=== PATIENT | female | born 1965 | race Hispanic/Latino ===

== ENCOUNTER 2017-12-14 07:19 | Emergency (ER) | payer SELFPAY ==
[2017-12-14 07:55] LABS: #Basophils 0.1 thou/uL (0.0-0.2); #Eosinphils 0.2 thou/uL (0.0-0.7); #Lymphocytes 2.2 thou/uL (1.20-3.40); #Monocytes 0.5 thou/uL (0.11-0.59); #Neutrophils 2.9 thou/uL (1.40-6.50); %Basophils 1.8 % (0.0-1.0); %Lymphocytes 37.6 % (21.0-51.0); %Monocytes 8.1 % (0.0-10.0); %Neutrophils 49.4 % (42.0-75.0); Hemoglobin 14.2 g/dL (12.0-16.0); Mean Corpuscular HGB CONC 32.7 g/dL (32.0-36.0); Mean Corpuscular Hemoglobin 30.1 pg (27.0-31.0); Mean Platelet Volume 6.9 fL (7.4-10.4); Platelet Count 316 thou/uL (130-400); RBC Distribution Width 12.4 % (11.5-14.5); Red Blood Cell (RBC) Count 4.72 mill/uL (4.20-5.40); White Blood Cell (WBC) Count 5.9 thou/uL (4.8-10.8)
[2017-12-14 08:13] LABS: ALT (SGPT) 15 U/L (8-55); AST (SGOT) 17 U/L (5-34); Albumin 4.2 g/dL (3.5-5.0); Alkaline Phosphatase 100 U/L (40-150); Anion Gap 15 mmol/L (10-20); BUN (Urea Nitrogen) 6 mg/dL (9.8-20.1); Bilirubin, Total 0.4 mg/dL (0.2-1.2); Calc. Creatinine Clearance 0 mL/min (70-130); Calcium 9.3 mg/dL (7.8-10.44); Carbon Dioxide 19 mmol/L (22-29); Chloride 106 mmol/L (98-107); Estimated GFR-MDRD 82; Globulin 3.1 g/dL (2.4-3.5); Glucose 92 mg/dL (70-105); Lipase 26 U/L (8-78); Potassium 4.4 mmol/L (3.5-5.1); Protein, Total 7.3 g/dL (6.0-8.3); Sodium 136 mmol/L (136-145)
[2017-12-14] MEDS ORDERED: Ketorolac Tromethamine 30 MG/ML VIAL ONE (08:46)
--- NOTE | 2017-12-14 08:58 | ULT ---
ULTRASOUND GALLBLADDER RIGHT UPPER QUADRANT: HISTORY: Abdominal pain. COMPARISON: None. FINDINGS: Visualized portion of the pancreas unremarkable. Hepatic echotexture is slightly coarsened. The ezio er measures 18.8 cm in length. The main portal vein is patent. There is cholelithiasis. No cholecystitis. Gallbladder wall thickn ess is normal at 2 mm. Common bile duct is normal in size. The right kidney measures 9.5 x 3.8 x 4.2 cm without mass, hydronephrosis, or abnormal calcifications . IMPRESSION: 1. Cholelithiasis without cholecystitis. 2. Mild hepatomegaly and increased hepatic echotexture suggests steatosis. POS: [facility]
[2017-12-14 09:08] LABS: Bilirubin Negative (Negative); Blood, Urine Negative (Negative); Clarity CLEAR (Clear); Glucose, Urine (Dipstick) Negative (Negative); Leukocyte Small (Negative); Nitrite Negative (Negative); Protein, Urine (Dipstick) Negative (Neg-Trace); Specific Gravity, Urine 1.011 (1.002-1.036); pH, Urine 7.5 (5.0-9.0)
[2017-12-14 09:10] LABS: Bacteria/HPF Rare-Few HPF (None Seen); Hyaline Casts/LPF 0-3 HYALINE CAST LPF (0-3 Hyaline); Squamous Epithelial 0-3 HPF (0-3)
== END 2017-12-14 09:45 | disposition home or self-care (01) ==
LOC: ERS 07:19
DX: K80.20 Calculus of gallbladder without cholecystitis without obstruction (principal); F41.9 Anxiety disorder, unspecified; F32.9 Major depressive disorder, single episode, unspecified; F17.210 Nicotine dependence, cigarettes, uncomplicated; Z79.899 Other long term (current) drug therapy
CPT/HCPCS: 36415; 76705; 80053; 81003; 81015; 83690; 85025; 96374; J1885

== ENCOUNTER 2017-12-17 20:20 | Observation (INO) | payer SELFPAY ==
[2017-12-17 20:52] LABS: Hemoglobin 12.9 g/dL (12.0-16.0); Mean Corpuscular HGB CONC 33.5 g/dL (32.0-36.0); Mean Corpuscular Hemoglobin 30.9 pg (27.0-31.0); Mean Corpuscular Volume 92.1 fl (81.0-99.0); Mean Platelet Volume 6.9 fL (7.4-10.4); Platelet Count 278 thou/uL (130-400); RBC Distribution Width 12.3 % (11.5-14.5); Red Blood Cell (RBC) Count 4.19 mill/uL (4.20-5.40); White Blood Cell (WBC) Count 5.9 thou/uL (4.8-10.8)
[2017-12-17] MEDS ORDERED: Ketorolac Tromethamine 30 MG/ML VIAL ONE (20:52)
[2017-12-17 21:08] LABS: Eosinophils 2 % (0-10); Lymphocytes 50 % (21-51); MDiff Complete? YES; Monocytes 5 % (0-10); Neutrophil 43 % (42-75); PLT Morphology Comment Appears Adequate
[2017-12-17 21:12] LABS: ALT (SGPT) 20 U/L (8-55); AST (SGOT) 17 U/L (5-34); Albumin 3.8 g/dL (3.5-5.0); Alkaline Phosphatase 91 U/L (40-150); Anion Gap 13 mmol/L (10-20); BUN (Urea Nitrogen) 12 mg/dL (9.8-20.1); Bilirubin, Total 0.3 mg/dL (0.2-1.2); Calc. Creatinine Clearance 0 mL/min (70-130); Calcium 8.6 mg/dL (7.8-10.44); Carbon Dioxide 20 mmol/L (22-29); Chloride 108 mmol/L (98-107); Estimated GFR-MDRD 83; Globulin 2.8 g/dL (2.4-3.5); Glucose 91 mg/dL (70-105); Lipase 35 U/L (8-78); Potassium 3.9 mmol/L (3.5-5.1); Protein, Total 6.6 g/dL (6.0-8.3); Sodium 137 mmol/L (136-145)
--- NOTE | 2017-12-17 21:38 | ULT ---
RIGHT UPPER QUADRANT ULTRASOUND: History: Worsening right upper quadrant pain. FINDINGS: The gallbladder shows a thickened wall on the current study. A large gallstone is again noted. Techno logist describes a positive Oro's sign today. The visualized liver, pancreas, and right kidney appear unremarkable. IMPRESSION: Cholelithiasis again noted. The gallbladder is slightly contracted which may contribute to the thicke bautista gallbladder wall. A positive Oro's sign is described and findings are concerning for a cholecy stitis. POS: [facility]
[2017-12-18] MEDS ORDERED: Metoclopramide HCl 10 MG/2 ML VIAL IVP PRN (00:17)
[2017-12-18] MEDS ORDERED: Ondansetron HCl/PF 4 MG/2 ML Vial IVP PRN (00:17)
[2017-12-18] MEDS ORDERED: Morphine 4 MG/ML Carpuject SLOW IVP PRN (00:20)
[2017-12-18] MEDS: D5 1/2 NS w/20 mEq KCL 1,000 ML IV SCH ×2 (00:44→10:11)
[2017-12-18 05:26] VITALS: BMI 30.6
[2017-12-18] MEDS ORDERED: Scopolamine 1.5 mg/72 hour Patch TOP SCH (09:45)
[2017-12-18] MEDS ORDERED: Sodium Chloride 0.9% 1,000 ML IV SCH (09:45)
[2017-12-18] MEDS: Ketorolac Tromethamine 30 MG/ML VIAL IVP SCH ×2 (10:04→17:25)
[2017-12-18] MEDS: Acetaminophen 1,000 MG in Premix Bag 1 BAG IVPB SCH ×2 (10:06→17:31)
--- NOTE | 2017-12-18 12:35 | HP ---
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 ALLERGIES: CODEINE, PENICILLIN, and ZOFRAN. TOBACCO: One pack per day. ALCOHOL: None. MEDICATIONS: Buspirone daily, Wellbutrin daily, Seroquel two tabs at bedtime, gabapentin 1 tab t.i.d ., doxepin 1 tab at bedtime, Effexor 1 tab a.m., Effexor XR 1 tab a.m. PAST SURGICAL HISTORY: Total abdominal hysterectomy; unilateral salpingo-oophorectomy (left); append ectomy; bilateral breast biopsies, benign; colonoscopy two years ago; polyps removed. She is to have a repeat colonoscopy in the near future due to family history of rectal cancer (paternal grandfather ). REVIEW OF SYSTEMS: Ten point noncontributory. PHYSICAL EXAMINATION: VITAL SIGNS: 5 foot 1, 162 pounds, 30 BMI, 97.9, 80, 121/78. HEENT: Unremarkable. Sclerae nonicteric. SKIN: Nonjaundiced. LUNGS: Clear to auscultation. CARDIAC: Regular rate and rhythm without murmur or gallop. ABDOMEN: Soft, tenderness in right upper quadrant with guarding and rebound, positive Oro's. EXTREMITIES: Unremarkable. LYMPHATICS: Axilla, groins, neck without lymphadenopathy. LABORATORY DATA: Basic metabolic profile essentially normal. Liver function tests normal. White co unt 5, hemoglobin 12. ASSESSMENT AND PLAN: 1. Acute cholecystitis. Recommend laparoscopic video cholecystectomy. Risk of infection, bleeding, visceral and biliary injury and open procedure discussed. Questions answered. We will plan today. 2. Depression. 3. Tobacco abuse. 4. Surveillance colonoscopies. 5. Multiple allergies: CODEINE, PENICILLIN, ZOFRAN.
[2017-12-18] MEDS ORDERED: Lidocaine 2% w/Epinephrine 1:200K 20 ML VIAL ONE (13:34)
[2017-12-18] MEDS ORDERED: Bupivacaine 0.25% HCL 30 ML VIAL ONE (13:34)
[2017-12-18] MEDS ORDERED: Fentanyl 100 MCG/2 ML VIAL ONE ×2 (13:40→15:28)
[2017-12-18] MEDS ORDERED: Midazolam HCl 2 mg/2 ml Vial ONE (13:40)
[2017-12-18] MEDS ORDERED: Promethazine HCl 25 MG/ML VIAL SLOW IVP PRN (14:27)
[2017-12-18] MEDS ORDERED: Meperidine HCl/PF 25 MG/ML VIAL SLOW IVP PRN (14:27)
[2017-12-18] MEDS ORDERED: Bupivacaine PF 0.5% 30 ML VIAL ONE (14:50)
[2017-12-18] MEDS ORDERED: Lidocaine 1% w/Epinephrine 1:200K 30 ML VIAL ONE (14:50)
[2017-12-18] MEDS ORDERED: Promethazine HCl 25 MG/ML VIAL ONE (15:28)
[2017-12-18] MEDS ORDERED: Labetalol HCl 100 MG/20 ML VIAL SLOW IVP PRN (15:29)
[2017-12-18] MEDS ORDERED: Acetaminophen 500 MG TAB PO PRN (15:34)
[2017-12-18] MEDS ORDERED: traMADol HCl 50 MG TAB PO PRN ×2 (15:34)
[2017-12-18] MEDS ORDERED: Lidocaine 1% PF 5 ML VIAL ONE (15:46)
[2017-12-18] MEDS ORDERED: Glycopyrrolate 0.2 MG/ML 5 ML SYRINGE ONE (15:46)
[2017-12-18] MEDS ORDERED: PROPOFOL 200 MG/20 ML VIAL ONE (15:46)
[2017-12-18] MEDS ORDERED: Morphine 2 MG/ML SYRINGE ONE (15:56)
--- NOTE | 2017-12-18 16:05 | OP ---
DATE OF PROCEDURE: 12/18/2017 PREOPERATIVE DIAGNOSES: Chronic and acute cholecystitis, cholelithiasis. POSTOPERATIVE DIAGNOSES: Chronic and acute cholecystitis, cholelithiasis. PROCEDURE: Laparoscopic video cholecystectomy. SURGEON: Dr. John Carrizales ANESTHESIA: General. Local 0.25% Marcaine, 30 mL, mixed with 1% Xylocaine with epinephrine, 30 mL PROCEDURE: The patient was taken to the operating room where under general anesthesia, abdomen was p repared with ChloraPrep, draped in routine fashion. Local anesthetic infiltrated into skin and subcu taneous tissue about each port site. Infraumbilical incision made and pneumoperitoneum to 15 mmHg ob tained with the Veress needle, replacing it with a 5 port. Video laparoscope inserted. Right subxip hoid incision made and 11 port placed. Right subcostal incision made midclavicular and anterior axil gurwinder lines and 5 mm ports placed. Liver appeared to be normal. Fundus of gallbladder grasped and re flected cephalad. Infundibulum grasped and reflected laterally. Cystic artery and duct dissected fr ee. Critical view obtained with two-thirds pericholecystic dissection from the cystic plate. Cystic artery and duct doubly clipped proximally, divided, and gallbladder dissected free from the liver be d obtaining good hemostasis prior to division of final peritoneal attachments. Gallbladder and iliana nts removed and submitted to Pathology. Good hemostasis ensured. Irrigant and pneumoperitoneum evac uated. All instruments removed and all skin incisions approximated with interrupted subdermal 4-0 Mo nocryl and DermaGlue applied.
[2017-12-18 16:42] VITALS: TEMP 98.1
[2017-12-18 18:31] VITALS: BP 127/78
--- NOTE | 2017-12-19 02:12 | DIS ---
DATE OF ADMISSION: 12/17/2017 DATE OF DISCHARGE: 12/18/2017 DISCHARGE DIAGNOSES: Cholecystitis, cholelithiasis with intractable abdominal pain. DISCHARGE MEDICATIONS: Buspirone daily, doxepin 100 mg daily, gabapentin 300 mg daily, Seroquel 400 mg 2 at bedtime, Effexor XR 150 mg at bedtime, Effexor 75 mg at bedtime, Ultram #30 one refill, over- the-counter Tylenol, ibuprofen for pain as needed. PROCEDURES THIS HOSPITALIZATION: Ultrasound of gallbladder, laparoscopic cholecystectomy. HISTORY: The patient is a 52-year-old female with intermittent history of right upper quadrant pain, became intolerable, brought to the hospital and underwent the above ultrasound workup noting gallsto neri, normal bile duct caliber, normal liver function test, admitted for intravenous fluids and antibi otics and taken to the operating room for laparoscopic cholecystectomy after which she convalesced an d discharged home. DIET AND ACTIVITY: As tolerated. FOLLOWUP: Followup in my office in 2 weeks.
[2017-12-19] MEDS ORDERED: Polyethylene Glycol 3350 17 GM Packet PO SCH (09:00)
[2017-12-23] MEDS ORDERED: Ibuprofen 600 MG TAB PO PRN (15:34)
--- NOTE | 2017-12-23 22:42 | EKG ---
Test Reason : Blood Pressure : / mmHG Vent. Rate : 082 BPM Atrial Rate : 082 BPM P-R Int : 134 ms QRS Dur : 094 ms QT Int : 372 ms P-R-T Axes : 072 057 060 degrees QTc Int : 434 ms Poor data quality, interpretation may be adversely affected Normal sinus rhythm Normal ECG Confirmed by AMANDA GROSS ([id number]), online editor NEIL VILLALTA ([id number]) on 12/23/2017 10:41:13 PM Referred By: MD MCKINLEY Confirmed By:AMANDA GROSS
== END 2017-12-18 18:32 | disposition home or self-care (01) ==
LOC: ERS 20:20 → SURG A 21:45
PROVIDERS: ADMIT Specialist; ATTEND Specialist
PROC: 0FT44ZZ Resection of Gallbladder, Percutaneous Endoscopic Approach (ICD-10-PCS; principal; 2017-12-18)
DX: K80.12 Calculus of gallbladder with acute and chronic cholecystitis without obstruction (principal); F17.210 Nicotine dependence, cigarettes, uncomplicated; F32.9 Major depressive disorder, single episode, unspecified; Z86.010 Personal history of colon polyps; Z80.0 Family history of malignant neoplasm of digestive organs; Z79.899 Other long term (current) drug therapy; Z88.0 Allergy status to penicillin; Z88.5 Allergy status to narcotic agent; Z88.8 Allergy status to other drugs, medicaments and biological substances; Z91.040 Latex allergy status; Z90.711 Acquired absence of uterus with remaining cervical stump; Z90.721 Acquired absence of ovaries, unilateral; Z90.13 Acquired absence of bilateral breasts and nipples; Z90.49 Acquired absence of other specified parts of digestive tract; Z98.890 Other specified postprocedural states
CPT/HCPCS: 36415; 76705; 80053; 83690; 85025; 88304; 93005; 96361; 96365; 96375; 96376; G0378; J0131; J1885; J1956; J2001; J2250; J2270; J2550; J2704; J2765; J3010; J7620; S0020